=== PATIENT | male | born 1975 ===

== ENCOUNTER 2023-01-31 19:58 | Emergency (ER) | payer SELFPAY ==
[~2023-01-31] VITALS: Ht 182.9 cm; Wt 86.4 kg
[2023-01-31 20:35] VITALS: TEMP 97.9
[2023-01-31] MEDS ORDERED: IBUPROFEN 600 MG TABLET PO ONE (20:45)
[2023-01-31] MEDS ORDERED: ACETAMINOPHEN 500 MG TABLET PO ONE (20:45)
[2023-01-31 21:16] LABS: GLUCOMETER DEV NAME(LOC) ERT.5; GLUCOSE,POINT OF CARE 172 MG/DL (70-110)
[2023-01-31 21:20] VITALS: BP 144/95; PULSE 72; RESP 18
== END 2023-01-31 21:47 | disposition home or self-care (01) ==
LOC: EMS 20:02
DX: S20.212A Contusion of left front wall of thorax, initial encounter (principal); E11.9 Type 2 diabetes mellitus without complications; I10 Essential (primary) hypertension; Z87.891 Personal history of nicotine dependence; X58.XXXA Exposure to other specified factors, initial encounter; Y93.89 Activity, other specified; Y92.89 Other specified places as the place of occurrence of the external cause; Y99.8 Other external cause status
CPT/HCPCS: 71101; 82962; 99283